=== PATIENT | male | born 1945 | race Caucasian/White ===

== ENCOUNTER 2019-05-30 22:08 | Emergency (ER) | payer MEDICARE ==
[~2019-05-30] VITALS: Ht 172.7 cm; Wt 110.3 kg
[2019-05-30 22:18] VITALS: BP 156/84
[2019-05-30] MEDS ORDERED: ONDANSETRON PF 4 MG/2 ML VIAL. IVP ONE (22:45)
[2019-05-30] MEDS ORDERED: IV NORMAL SALINE 1,000ML 1,000 ML IV ONE (22:45)
[2019-05-30] MEDS ORDERED: MECLIZINE 12.5 MG TABLET. PO PRN (23:15)
[2019-05-30 23:17] LABS: BASO % 1 % (0-3); EOS # 0.1 x10^3/uL (0.0-0.7); EOS % 1 % (0-3); HEMOGLOBIN 12.8 g/dL (13.0-17.5); LYMPH # 0.6 x10^3/uL (1.0-4.8); LYMPH % 8 % (24-48); MEAN CORPUSCULAR HEMOGLOBIN 31 pg (25-35); MEAN CORPUSCULAR HGB CONC 34 g/dL (31-37); MEAN CORPUSCULAR VOLUME 91 fL (79-100); MONO # 0.4 x10^3/uL (0.0-1.1); MONO % 6 % (0-9); NEUT # 6.8 x10^3uL (1.8-7.7); NEUT % 85 % (31-73); PLATELET COUNT 133 x10^3/uL (140-400); RED BLOOD COUNT 4.18 x10^6/uL (4.30-5.70); RED CELL DISTRIBUTION WIDTH 14.3 % (11.5-14.5)
[2019-05-30 23:20] LABS: CALCIUM 9.5 mg/dL (8.5-10.1); CREATININE 1.1 mg/dL (0.7-1.3); GFR 65.4; POTASSIUM 4.2 mmol/L (3.5-5.1)
[2019-05-30 23:26] LABS: ALBUMIN/GLOBULIN RATIO 1.3 (1.0-1.7); TOTAL BILIRUBIN 0.2 mg/dL (0.2-1.0); TOTAL PROTEIN 7.1 g/dL (6.4-8.2)
--- NOTE | 2019-05-30 23:54 | PHYS DOC ---
Past History Past Medical History: Anxiety, Cancer, COPD, Depression, Hypertension, Other Additional Past Medical Histor: virtigo Past Surgical History: Tonsillectomy, Other Additional Past Surgical Histo: Prostat Alcohol Use: None Drug Use: None Adult General Chief Complaint Chief Complaint: NAUSEA/VOMITING/DIARRHEA HPI HPI 73-year-old male presents with dizziness, nausea, and generalized aching. He started a new bladder medicine about a week ago and for the last couple of days has been feeling like he has mild nausea and cramping. He looked up the side effects and all of the symptoms he has are consistent with side effects of this medication. He scratches the dizziness as a room spinning sensation. He has had vertigo once in the past that was similar without nausea. He has no other compla ints at this time. Review of Systems Review of Systems Constitutional: Aches. Denies fever or chills [] Eyes: Denies change in visual acuity, redness, or eye pain [] HENT: Denies nasal congestion or sore throat [] Respiratory: Denies cough or shortness of breath [] Cardiovascular: No additional information not addressed in HPI [] GI: Nausea. Denies abdominal pain, vomiting, bloody stools or diarrhea [] : Denies dysuria or hematuria [] Musculoskeletal: Denies back pain or joint pain [] Integument: Denies rash or skin lesions [] Neurologic: Dizziness. Denies headache, focal weakness or sensory changes [] Endocrine: Denies polyuria or polydipsia [] All other systems were reviewed and found to be within normal limits, except as documented in this note. Current Medications Current Medications Current Medications Medications (Trade) Dose Ordered Sig/Amado Start Time Stop Time Status Last Admin Dose Admin Meclizine HCl (Antivert) 25 mg PRN Q6HRS PRN 05/30/19 23:15 Ondansetron HCl (Zofran) 4 mg 1X ONCE 05/30/19 22:45 05/30/19 23:08 DC 05/30/19 22:48 4 MG Sodium Chloride 1,000 ml @ 1,000 mls/hr 1X ONCE 05/30/19 22:45 05/30/19 23:44 DC 05/30/19 22:48 1,000 MLS/HR Allergies Allergies Allergies Coded Allergies Type Severity Reaction Last Updated Verified No Known Drug Allergies 05/30/19 No Physical Exam Physical Exam Constitutional: Well developed, obese, well nourished, no acute distress, non- toxic appearance. [] HENT: Normocephalic, atraumatic, bilateral external ears normal, oropharynx moist, no oral exudates, nose normal. [] Eyes: PERRLA, EOMI, conjunctiva normal, no discharge. [] Neck: Normal range of motion, no tenderness, supple, no stridor. [] Cardiovascular:Heart rate regular rhythm, no murmur [] Lungs & Thorax: Bilateral breath sounds clear to auscultation [] Abdomen: Bowel sounds normal, soft, no tenderness, no masses, no pulsatile masses. [] Skin: Warm, dry, no erythema, no rash. [] Back: No tenderness, no CVA tenderness. [] Extremities: No tenderness, no cyanosis, no clubbing, ROM intact, no edema. [] Neurologic: Alert and oriented X 3, normal motor function, normal sensory function, no focal deficits noted. [] Psychologic: Affect normal, judgement normal, mood normal. [] Current Patient Data Vital Signs Vital Signs Date Time Temp Pulse Resp B/P (MAP) Pulse Ox O2 Delivery O2 Flow Rate FiO2 05/30/19 22:18 98.0 80 16 93 Room Air 05/30/19 22:18 156/84 (108) Lab Results Laboratory Tests Test 05/30/19 22:50 White Blood Count 8.0 x10^3/uL (4.0-11.0) Red Blood Count 4.18 x10^6/uL (4.30-5.70) L Hemoglobin 12.8 g/dL (13.0-17.5) L Hematocrit 38.0 % (39.0-53.0) L Mean Corpuscular Volume 91 fL (79-100) Mean Corpuscular Hemoglobin 31 pg (25-35) Mean Corpuscular Hemoglobin Concent 34 g/dL (31-37) Red Cell Distribution Width 14.3 % (11.5-14.5) Platelet Count 133 x10^3/uL (140-400) L Neutrophils (%) (Auto) 85 % (31-73) H Lymphocytes (%) (Auto) 8 % (24-48) L Monocytes (%) (Auto) 6 % (0-9) Eosinophils (%) (Auto) 1 % (0-3) Basophils (%) (Auto) 1 % (0-3) Neutrophils # (Auto) 6.8 x10^3uL (1.8-7.7) Lymphocytes # (Auto) 0.6 x10^3/uL (1.0-4.8) L Monocytes # (Auto) 0.4 x10^3/uL (0.0-1.1) Eosinophils # (Auto) 0.1 x10^3/uL (0.0-0.7) Basophils # (Auto) 0.0 x10^3/uL (0.0-0.2) Sodium Level 139 mmol/L (136-145) Potassium Level 4.2 mmol/L (3.5-5.1) Chloride Level 103 mmol/L (98-107) Carbon Dioxide Level 29 mmol/L (21-32) Anion Gap 7 (6-14) Blood Urea Nitrogen 19 mg/dL (8-26) Creatinine 1.1 mg/dL (0.7-1.3) Estimated GFR (Cockcroft-Gault) 65.4 BUN/Creatinine Ratio 17 (6-20) Glucose Level 145 mg/dL (70-99) H Calcium Level 9.5 mg/dL (8.5-10.1) Total Bilirubin 0.2 mg/dL (0.2-1.0) Aspartate Amino Transferase (AST) 28 U/L (15-37) Alanine Aminotransferase (ALT) 54 U/L (16-63) Alkaline Phosphatase 128 U/L (46-116) H Total Protein 7.1 g/dL (6.4-8.2) Albumin 4.0 g/dL (3.4-5.0) Albumin/Globulin Ratio 1.3 (1.0-1.7) EKG EKG [] Radiology/Procedures Radiology/Procedures [] Course & Med Decision Making Course & Med Decision Making Pertinent Labs and Imaging studies reviewed. (See chart for details) Given the patient 4 mg of Zofran IV, 1 L normal saline. He is feeling mostly better. I will additionally give him 25 mg of meclizine. The patient feels well enough to go home. He is stable for discharge at this time. He will discuss with the prescribing doctor with [facility] continue to take this new medication. [] Dragon Disclaimer Dragon Disclaimer This electronic medical record was generated, in whole or in part, using a voice recognition dictation system. Departure Departure: Impression: Primary Impression: Nausea Additional Impressions: Dizziness Medication reaction Disposition: HOME, SELF-CARE Condition: IMPROVED Referrals: KARL DEE MD (PCP) Patient Instructions: Dizziness, [id number] Problem Qualifiers NALINI CARTER DO May 30, 2019 23:54
[2019-05-30] MEDS ORDERED: ONDANSETRON 4MG ODT 4TABLET STARTPACK. PO ONE (23:58)
[2019-05-31] MEDS ORDERED: ONDANSETRON 4MG ODT 4TABLET STARTPACK. PO ONE
== END 2019-05-31 00:01 | disposition home or self-care (01) ==
LOC: ER 22:08
DX: R42 Dizziness and giddiness (principal); R11.0 Nausea; T50.995A Adverse effect of other drugs, medicaments and biological substances, initial encounter; J44.9 Chronic obstructive pulmonary disease, unspecified; F41.9 Anxiety disorder, unspecified; F32.9 Major depressive disorder, single episode, unspecified; I10 Essential (primary) hypertension; Y92.89 Other specified places as the place of occurrence of the external cause
CPT/HCPCS: 36415; 80053; 85025; 96361; 96374; 99284; J2405; J8597; Q0162; J7030